=== PATIENT | female | born 1995 | race Two or more races ===

== ENCOUNTER 2022-07-20 17:23 | Emergency (ER) | payer MEDICAID, OTHER ==
[~2022-07-20] VITALS: Ht 157.5 cm; Wt 75.3 kg
[2022-07-20 18:26] VITALS: BP 123/81
[2022-07-20 19:15] LABS: Urine Bacteria NONE SEEN /hpf (None Seen); Urine Blood Negative /uL (Negative); Urine Specific Gravity 1.008 (1.001-1.035); Urine WBC 1 /hpf (0 - 5)
[2022-07-20 19:24] LABS: Basophils # (auto) 0.1 10 ^3/uL (0-0.2); Basophils % (auto) 0.6 % (0.0-2.0); Eosinophils # (auto) 0.4 10 ^3/uL (0-0.8); Eosinophils % (auto) 3.8 % (0.0-7.0); Hematocrit 42.2 % (36.0-46.0); Hemoglobin 14.1 g/dL (12.2-16.2); Lymphocytes # (auto) 3.4 10 ^3/uL (0.4-5.4); Lymphocytes % (auto) 35.6 % (10.0-50.0); Mean Corpuscular Hemoglobin 30.3 pg (28.0-32.0); Mean Corpuscular Hgb Conc. 33.4 g/dL (32.0-36.0); Mean Corpuscular Volume 90.5 fL (80.0-100.0); Monocytes # (auto) 0.7 10 ^3/uL (0-1.3); Monocytes % (auto) 7.6 % (0.0-12.0); Neutrophils % (auto) 52.4 % (37.0-80.0); Nucleated Red Blood Cells % 0.1 %; Red Blood Cells 4.66 10^6/uL (4.0-5.20); Red Cell Distribution Width 13.3 % (11.8-14.3); White Blood Cell 9.4 10^3/uL (4.4-10.8)
[2022-07-20 19:29] LABS: Albumin 3.9 g/dL (3.4-5.0); BUN/Creatinine Ratio 16.4 (10.0-20.0); Calcium 9.1 mg/dL (8.5-10.1); Potassium 3.4 mmol/L (3.5-5.1)
[2022-07-20 19:32] LABS: Bilirubin, Total 0.4 mg/dL (0.2-1.0); Total Protein 7.9 g/dL (6.4-8.2)
[2022-07-20] MEDS ORDERED: IBUP800T26 PO (19:43)
[2022-07-20] MEDS ORDERED: KETOROLAC TROMETH 30 MG/ML 1ML VIAL IM ONE (19:45)
== END 2022-07-20 20:04 | disposition home or self-care (01) ==
LOC: ER 17:23
DX: R51.9 Headache, unspecified (principal)
CPT/HCPCS: 36415; 80053; 81001; 85025; 96372; 99283; J1885